=== PATIENT | female | born 1970 | race Caucasian/White ===

== ENCOUNTER → 2017-04-25 | Outpatient (CLI) | payer OTHER ==
[~2017-04-25] VITALS: Ht 167.6 cm; Wt 92.5 kg
[~2017-04-25] MED LIST: CLARITIN,ALAVAR10 MG PO; GUMMIES CHILDR1 EACH PO; HAIR-SKIN-NAIL1 EACH PO; ULTRAM50 MG PO; VITAMIN B-122000 MC1 PO; VITAMIN B12-FO1 EACH PO; ZANTAC150 MG PO
== END | disposition home or self-care (01) ==
LOC: AMB 12:22
PROC: 0DJ08ZZ Inspection of Upper Intestinal Tract, Via Natural or Artificial Opening Endoscopic (ICD-10-PCS; principal; 2017-04-25)
DX: T85.528A Displacement of other gastrointestinal prosthetic devices, implants and grafts, initial encounter (principal)
CPT/HCPCS: J2250